=== PATIENT | female | born 1990 | race Caucasian/White ===

== ENCOUNTER → 2016-06-13 | Outpatient (CLI) | payer BC ==
--- NOTE | 2016-06-13 10:22 | US ---
EXAM DESCRIPTION: Gallbladder ultrasound. CLINICAL HISTORY: Epigastric pain COMPARISON: None. TECHNIQUE: Transabdominal sonography was performed by an lead nuclear medicine technologist. FINDINGS: Liver: Echogenicity is unremarkable. No suspicious lesion or surface nodularity. Biliary: No gallstones, gallbladder wall thickening, or sonographic Loomis's sign. There is no biliary duct dilation. Mid common bile duct measures 3 mm in diameter. Pancreas: No focal lesion. However, certain portions are obscured by overlying bowel gas and unable to be evaluated. IMPRESSION Unremarkable gallbladder ultrasound. Electronically signed by: Perez Lara MD 06/13/2016 10:20
== END ==
LOC: US 08:28
PROVIDERS: ATTEND Family Medicine
DX: R10.13 Epigastric pain (principal)

== ENCOUNTER → 2016-06-16 | Outpatient (CLI) | payer BC ==
--- NOTE | 2016-06-17 08:01 | MRI ---
EXAM DESCRIPTION: MR LUMBAR SPINE WITHOUT IV CONTRAST CLINICAL HISTORY: 25 y/o F, RADICULOPATHY COMPARISON: None TECHNIQUE: Multi planar, multi sequence imaging of the lumbar spine was acquired without IV contrast. FINDINGS: Vertebral body height, alignment and marrow signal are unremarkable. Disc desiccation with posterior central annular tear at L5-S1. The conus terminates at L1-L2 and is unremarkable. L1-L2: Unremarkable. L2-L3: Unremarkable. L3-L4: Unremarkable. L4-L5: Unremarkable. L5-S1: Focal posterior central disc protrusion. There is narrowing of the left lateral recess and contact of the descending left S1 nerve root. The midline diameter of the spinal canal is also mildly narrowed to 9 mm. Bilateral neural foramen are likely adequate. IMPRESSION: Today's exam demonstrates a focal posterior disc protrusion and annular tear. There is contact of the descending left S1 nerve root due to left lateral recess narrowing at L5-S1. This could result in a left S1 radiculopathy if the patient is symptomatic. Mild spinal canal narrowing only at L5-S1. Mild bilateral neural foraminal narrowing at L5-S1, no exiting nerve root contact. Electronically signed by: Perez Lara MD 06/17/2016 07:59
== END | disposition home or self-care (01) ==
LOC: MRI 10:19
PROVIDERS: ATTEND Family Medicine
DX: M54.16 Radiculopathy, lumbar region (principal)

== ENCOUNTER 2017-01-16 09:52 | Emergency (ER) | payer BC ==
[2017-01-16] MEDS ORDERED: CYCLOBENZAPRINE HCL 5 MG TAB PO ONE (10:14)
[2017-01-16] MEDS ORDERED: methylPREDNISolone SODIUM SUC 125 MG/2 ML VIAL IM ONE (10:14)
[2017-01-16] MEDS ORDERED: HYDROcodone 5MG/APAP 325MG 1 EA TAB PO ONE (10:14)
--- NOTE | 2017-01-16 10:14 | ED.PDOC ---
History of Present Illness - General Chief Complaint: Back Pain or Injury Stated Complaint: Worsening low back pain from herniated disc Time Seen by Provider: 01/16/17 09:53 Source: patient, RN notes reviewed, Vital Signs reviewed, old records, other - Reviewed state controlled substance database - no narcotics filled except cough syrup back in May Exam Limitations: no limitations - History of Present Illness Initial Comments: Patient comes in with c/o severe low back pain. She has a known history of a herniated disc @ L5-S1. Pain has been getting worse over the past month and then became quite severe yesterday. She takes Zanaflex and tried some only Tylenol #3 without improvement. Pain with movement. Pain radiates down her legs. Can't stand - unsure if just due to the pain or if there is some weakness too. She had an MRI Jun 2016 and initially did physical therapy which helped but got too expensive so started doing the exercises at home. Was to start injections but they were too expensive. ~ 2 weeks ago went to the chiropractor which helped. Timing/Duration: getting worse Quality/Severity: severe, radiation, sharpness Back Pain Location: lumbar spine Back Pain Radiation: lower legs Method of Injury/Prior Injury: other - Known herniated disc Improving Factors: nothing Worsening Factors: movement Associated Symptoms: muscle spasms, weakness, lower back pain Allergies/Adverse Reactions: Allergies Tizanidine [From Zanaflex] Allergy (Verified 01/16/17 10:18) Home Medications: Ambulatory Orders Acetamin W/Cod #3 Tab [Tylenol w/CODEINE #3] 1 - 2 ea PO Q4HR PRN #15 tab Cyclobenzaprine HCl [Flexeril] 10 mg PO Q8HR PRN #15 tab 01/16/17 Fluoxetine HCl [PROzac] 20 mg PO DAILY 01/16/17 Levonorgestrel-Ethinyl Estradi [Seasonique] 1 tab PO DAILY 01/16/17 Methylprednisolone [Medrol Dose Wesley] 4 mg PO DAILY #1 pack 01/16/17 Topiramate [Topamax] 100 mg PO TID 01/16/17 Review of Systems - Review of Systems Constitutional: States: no symptoms reported Respiratory: States: no symptoms reported Cardiology: States: no symptoms reported Gastrointestinal/Abdominal: States: no symptoms reported Musculoskeletal: States: see HPI, back pain Skin: States: no symptoms reported Neurological: States: see HPI, weakness, other - No bowel or bladder incontinence. Denies: numbness, paresthesia All other Systems: No Change from Baseline Past Medical History (General) - Patient Medical History Hx Diabetes: No Hx Renal Disease: No - Social History Hx Tobacco Use: No Hx Alcohol Use: Yes Hx Substance Use: No Hx Substance Use Treatment: No Hx Depression: Yes - Female History Hx Last Menstrual Period: 12/17/13 Patient : No Expected Date of Delivery:: 10/22/14 Family Medical History - Family History Father Maternal Living Status: Still Living Hx Family Hypertension: Yes Hx Family;Other: Pt states high cholestrol as well Mother Maternal Living Status: Still Living Hx Family Hypertension: Yes Hx Family;Other: Pt states high cholestrol as well, maternal aunt had GDM Maternal Grandparents Living Status: Still Living Hx Family Diabetes: Yes - Pt states her grandmother has type 2 diabetes Brother Maternal Living Status: Still Living Hx Family;Other: Pt states her brother has epilepsy Father Paternal Living Status: Hx Family Diabetes: Yes - Pt spouses father had type 2 diabetes Hx Family;Other: Pt spouses father also had 3 heart attacks Physical Exam - Physical Exam General Appearance: Alert, Obvious distress, Well Developed, Well Groomed, Well Hydrated, Well Nourished Cardiovascular/Respiratory: normal peripheral pulses, no respiratory distress Peripheral Pulses: posterior tibialis,right: 2+, posterior tibialis,left: 2+ Back Exam: muscle spasm - lumbosacral, vertebral tenderness - lower lumbar spine Extremity Exam: no evidence of injury, normal range of motion, non-tender Neurologic: alert, normal mood/affect, oriented x 3, abnormal gait - can't walk w/o significant assistance, motor weakness - bilateral LE 3+/5 with normal and equal senation to light touch, other - DTR @ knees 2+ and brisk Skin Exam: normal color, warm/dry Progress - Progress Progress: 01/16/17 11:19 Patient given Tyl #3, Flexeril PO and Solu-Medrol 125mg IM Reports she is feeling better. Will d/c home with Rx for above Departure - Departure Clinical Impression: Herniation of lumbar intervertebral disc with radiculopathy Time of Disposition: 11:21 Disposition: Discharge to Home or Self Care Condition: Good Instructions: DI for Back Pain With Sciatica Diet: resume usual diet Activity: increase activity as tolerated Referrals: Sung Franklin MD [Primary Care Provider] - 1-5 Days Prescriptions: Acetamin W/Cod #3 Tab [Tylenol w/CODEINE #3] 1 - 2 ea PO Q4HR PRN #15 tab PRN Reason: Moderate To Severe Pain Cyclobenzaprine HCl [Flexeril] 10 mg PO Q8HR PRN #15 tab PRN Reason: Muscle Spasms Methylprednisolone [Medrol Dose Wesley] 4 mg PO DAILY #1 pack Home Medications: Ambulatory Orders Acetamin W/Cod #3 Tab [Tylenol w/CODEINE #3] 1 - 2 ea PO Q4HR PRN #15 tab Cyclobenzaprine HCl [Flexeril] 10 mg PO Q8HR PRN #15 tab 01/16/17 Fluoxetine HCl [PROzac] 20 mg PO DAILY 01/16/17 Levonorgestrel-Ethinyl Estradi [Seasonique] 1 tab PO DAILY 01/16/17 Methylprednisolone [Medrol Dose Wesley] 4 mg PO DAILY #1 pack 01/16/17 Topiramate [Topamax] 100 mg PO TID 01/16/17
[2017-01-16 12:11] VITALS: BP 113/75; TEMP 97.1; O2SAT 98
== END 2017-01-16 11:45 | disposition home or self-care (01) ==
LOC: ER 09:52
DX: M51.16 Intervertebral disc disorders with radiculopathy, lumbar region (principal); Z88.8 Allergy status to other drugs, medicaments and biological substances; Z79.899 Other long term (current) drug therapy

== ENCOUNTER → 2017-08-02 | Outpatient (CLI) | payer BC ==
--- NOTE | 2017-08-02 16:25 | MRI ---
EXAM DESCRIPTION: Lumbar Spine w/o Contrast MRI. CLINICAL HISTORY: HERNIATED LUMBOSACRAL DISC COMPARISON: MRI lumbar spine 06/16/2016. TECHNIQUE: Multiplanar, multiple standard sequences, non contrast MRI, lumbar spine. FINDINGS: L5-S1: Again noted is a herniated desiccated disc in the midline, between 8 and 9 mm from the posterior bony margin, that is impressing on the thecal sac, and the left subarticular recess and descending left S1 nerve. AP canal diameter 7 mm. The distance of posterior herniation in the disc has increased since the prior study, as well as mass effect on the left S1 nerve root and thecal sac. The annular fissure is not as well seen on this study. Disc space has decreased since the prior study. Right foramen is nearly stenotic with mild stenosis of the left foramen. Facets and ligaments are unremarkable. Minimal peripheral desiccation of the L4-5 disc abutting the thecal sac and the descending bilateral L5 nerves above the subarticular recesses. Flavum ligaments abutting the posterior thecal sac. AP canal diameter 10 mm. Bilaterally shortened pedicles. Flavum ligaments and facets are unremarkable. Mild bilateral foraminal narrowing. L3-4: Annular desiccation with no significant bulging. Bilateral flavum ligament hypertrophy. Facets are unremarkable. AP canal diameter 11 mm with shortened pedicles. Bilateral foramina are patent. L2-3: Normal signal in the disc with disc space preserved. No bulging. Minimal hypertrophy of the flavum ligaments. AP canal diameter 13 mm. Bilateral foramina are patent. L1-2: Normal signal in the disc. Disc space preserved. No bulging. Canal and foramina are patent. Conus terminates just above the disc space. Posterior elements unremarkable. T12-L1: Normal signal in the disc and normal width of the disc space. Posterior elements are unremarkable. Canal and foramina are patent. Paravertebral soft tissues are negative. Normal marrow signal in the remaining vertebral bodies and the posterior elements. No scoliosis or other alignment abnormalities. Vertebral bodies are not compressed at any level. IMPRESSION: 1. L5-S1 disc herniation has increased in diameter and inferior migration since June 2016; increased mass effect on the thecal sac and left S1 nerve root. Canal and left subarticular recess stenosis. 2. Borderline central canal stenosis at L4-5 with shortened pedicles and flavum ligament hypertrophy. Moderate canal narrowing at L3-4 with the same factors. The discs at these levels are not significantly bulging. Electronically signed by: Alan Adair MD 08/02/2017 4:23 PM CDT
== END ==
LOC: MRI 07:03
PROVIDERS: ATTEND Family Medicine
DX: M51.27 Other intervertebral disc displacement, lumbosacral region (principal)

== ENCOUNTER → 2017-08-08 | Outpatient (CLI) | payer BC | LOC: LAB.O 08:14 | PROVIDERS: ATTEND Orthopaedic Surgery Orthopaedic Surgery of the Spine | DX: M51.26 Other intervertebral disc displacement, lumbar region (principal) ==

== ENCOUNTER 2019-07-18 15:27 | Observation (INO) | payer BC ==
[2019-07-18] MEDS ORDERED: SODIUM CHLORIDE 0.9% (FLUSH) 10 ML SYG IV PRN (16:19)
[2019-07-18] MEDS ORDERED: IV SET AND CAP CHANGE INJ INJ SCH (16:30)
[2019-07-18] MEDS: IBUPROFEN 400 MG TAB PO PRN (16:50)
[2019-07-18] MEDS: SODIUM CHLORIDE 0.9% 1000ML 1,000 ML IVS PRN (16:50)
[2019-07-18] MEDS: SULFA/TRIMETH 800/160 (DS) TAB 1 EA TAB PO SCH (16:51)
[2019-07-18] MEDS ORDERED: HYDROcodone 5MG/APAP 325MG 1 EA TAB PO ONE (17:07)
[2019-07-18] MEDS ORDERED: cefTRIAXone SODIUM 1 GM in SODIUM CHL 0.9% 50ML MIN-BAG+ 50 ML IVPB SCH (21:00)
[2019-07-18] MEDS ORDERED: SODIUM CHL 0.9% 50ML MIN-BAG+ 50 ML IVPB ONE (21:21)
[2019-07-18] MEDS ORDERED: cefTRIAXone SODIUM 1 GM VIAL ONE (21:22)
[2019-07-18] MEDS: ACETAMINOPHEN 325 MG TAB PO PRN (21:43)
[2019-07-18] MEDS: SODIUM CHLORIDE 0.9% (FLUSH) 10 ML SYG IV SCH (23:01)
[2019-07-19] MEDS: SODIUM CHLORIDE 0.9% 1000ML 1,000 ML IVS PRN ×2 (00:32→09:05)
[2019-07-19] MEDS: IBUPROFEN 400 MG TAB PO PRN (00:37)
[2019-07-19] MEDS: SULFA/TRIMETH 800/160 (DS) TAB 1 EA TAB PO SCH (04:55)
[2019-07-19] MEDS: SODIUM CHLORIDE 0.9% (FLUSH) 10 ML SYG IV SCH (09:05)
[2019-07-19] MEDS: ACETAMINOPHEN 325 MG TAB PO PRN (09:16)
--- NOTE | 2019-07-19 12:02 | US ---
EXAM DESCRIPTION: Breast,Right: Ultrasound CLINICAL HISTORY: 29 yearsFemalemastitis 2 weeks. Currently nursing baby. Pain and tenderness right breast. Erythema in the scanned. Lifetime risk of developing breast cancer (Tyrer-Cuzick model)(%): Not calculated COMPARISON: None. TECHNIQUE: Transcutaneous scanning of the lateral right breast utilizing neumann-scale and Doppler modes. Scanning performed by the fashion photographer only. FINDINGS: Ultrasound: Scanning thickening on the lateral right breast in particular, the 8:00 region where erythema is noted. No significant tenderness during the scan. Minimal edema between the subcutaneous layer and the fibroglandular tissues which predominate. Dilated retroareolar ducts. Erythema in the fatty layer and the fibroglandular tissues. No collection of hypoechoic material or fluid. No dominant solid mass. No large calcifications. IMPRESSION: Benign exam. Mastitis lateral and lower outer quadrant right breast. No abscess formation. BIRAD CATEGORY: 2 BENIGN FINDINGS. RECOMMENDATIONS: FOLLOW UP: The region of interest should be followed on clinical grounds, and if noted to change in size or character, a targeted/directed follow-up on US examination may be performed. Written communication explaining the IMPRESSION and follow-up, will be mailed to the patient and referring health care provider. The FINDINGS and the FOLLOW-UP plan were reviewed via telephone call with the hospitalist after the examination. According to the [employer], yearly mammograms are recommended starting at age 40 and continuing as long as a woman is in good health. Any breast change noted on a breast self-exam should be reported promptly to the patient's healthcare provider. Breast MRI is recommended for women with an approximately 20-25% or greater lifetime risk of breast cancer, including women with a strong family history of breast or ovarian cancer and women who have been treated for Hodgkin's disease. Electronically signed by: Alan Adair MD 07/19/2019 12:01 PM STEREOTYPER HELPER
[2019-07-19 13:04] VITALS: BP 109/70; TEMP 98.2; O2SAT 98
--- NOTE | 2019-07-24 09:04 | SSS ---
SUPERVISING PHYSICIAN: Sung Franklin MD DISCHARGE DIAGNOSES: 1. Mastitis of the right breast 2 weeks . 2. Asthma. 3. Migraine headaches. HISTORY OF PRESENT ILLNESS: This is a 29 year-old female who presented to the clinic with pain in her right breast 2 weeks and she is nursing. The pain in the symptoms started 24 hours previously. She had chills, headache ,nausea, with streaking along the right breast. She has tried to relieve the pain with warm compresses, hot showers, but nothing has helped. In the clinic, her initial vital signs were temperature of 100.6, pulse 129, blood pressure 102/70 and her oxygen saturation was 96%. Lab studies were done at the clinic. Initially she was going to be sent home with some antibiotics but she was extremely tired and she thought very dehydrated so she was sent to the hospital as a direct admission. Her white count in the hospital was 18,200 and her electrolytes were basically within normal limits. She was given some fluids and started on p.o. Bactrim and ceftriaxone, warm compresses were given to the patient. She had antiemesis and she received one dose of hydrocodone and then she received ibuprofen and Tylenol for her pain after that. The next morning, the pain was much improved. She was able to nurse without much difficulty and at this point she wanted to go home so she could be with her 2-week-old . PAST MEDICAL HISTORY: 1. Asthma. 2. Migraine headaches. 3. Lumbar discectomy, CURRENT MEDICATIONS: Topiramate. ALLERGIES: Tizanidine. FAMILY HISTORY: Positive for hypertension and ovarian cysts. SOCIAL HISTORY: She is . She lives in [place]. She has 3 children. She denies any tobacco or illicit drug use. She does drink on a social basis except when she is or nursing. REVIEW OF SYSTEMS: GENERAL: Positive for chills, fatigue and fever. HEENT: Negative for sinus symptoms, ear pain, vision changes, sore throat. RESPIRATORY: Negative for coughing, wheezing, shortness of breath CARDIAC: Negative for chest pain, palpitations, tachycardia. GI: Negative for nausea, vomiting or diarrhea. INTEGUMENT: As per history of present illness.. GENITOURINARY: Negative for hematuria, dysuria, polyuria. NEUROLOGICAL: Positive for headaches. Negative for seizures. PHYSICAL EXAMINATION: VITAL SIGNS: Temperature 98.2, heart rate 80, blood pressure 109/70, respiratory rate 18. Oxygen saturation 98% on room air. GENERAL: This is a 29 year-old female patient who is lying in her hospital bed. She is in no acute distress. HEENT: Normocephalic and atraumatic. Pupils are equal and reactive. Oropharynx is clear. NECK: Supple without mass. CHEST: Essentially clear to auscultation bilaterally. There is equal rise and fall of the chest with inspiration and expiration. CARDIOVASCULAR: Regular rate and rhythm. Occasionally, she is tachycardiac. ABDOMEN: Soft, nondistended, non-tender. Bowel sounds are positive. EXTREMITIES: No cyanosis, clubbing, or edema. SKIN: There is erythema and redness to the right breast consistent with mastitis and is tender to palpation. There is no fluctuance or drainage noted except milk production from the nipple. LABORATORY: WBC was 15.3 with hemoglobin of 11.3 and hematocrit 32.8. She did have a left shift on her differential. Her chemistries are basically within normal limits. Culture of her breast milk is pending. Blood cultures were done at the clinic. Breast ultrasound shows thickening of the lateral right breast at particularly the 8 o'clock region where erythema is noted. No significant tenderness during the scan, minimal edema between the subcutaneous layer and the fibroglandular tissue which predominates. Dilated retroareolar ducts, erythema in the fatty layer and the fibroglandular tissue. No collection of hypoechogenic material or fluid. No dominant solid mass, no large calcifications. Benign exam, mastitis of the lateral and lower outer quadrant right breast. No abscess formation. DISCHARGE PLAN: The patient will be discharged home in stable condition. She is to resume her previous diet and increase her activity as tolerated. She is to followup with her primary care physician, Dr. Franklin, on 07/24/19 at 2:30 PM. In addition to her routine medications, she has a prescription for Bactrim as well as Keflex. She is to return to the hospital or followup with Dr. Franklin for any problems or complications. DISCHARGE MEDICATIONS: 1. Topiramate. 2. Cephalexin. 3. Bactrim. #[id number] MTDD
== END 2019-07-19 15:33 | disposition home or self-care (01) ==
LOC: MS 15:27 → INTOOBSV 15:27
PROVIDERS: ADMIT Nurse Practitioner Acute Care; ATTEND Nurse Practitioner Acute Care
DX: O91.22 Nonpurulent mastitis associated with the puerperium (principal); G43.909 Migraine, unspecified, not intractable, without status migrainosus; Z79.899 Other long term (current) drug therapy; Z88.8 Allergy status to other drugs, medicaments and biological substances
CPT/HCPCS: 96361 ×2; 96374; J0696; J7030 ×3; J7050; 80048 ×3; 36415 ×3; 85025 ×2; 87070; 87205; 83735; 76641; 94760

== ENCOUNTER → 2019-07-24 | Outpatient (CLI) | payer BC | DX: N61.0 Mastitis without abscess (principal) ==

== ENCOUNTER → 2019-11-12 | Outpatient (CLI) | payer BC ==
--- NOTE | 2019-11-12 14:23 | MRI ---
EXAM DESCRIPTION: Lumbar Spine w/o Contrast : Magnetic Resonance Imaging. CLINICAL HISTORY: RADICULOPATHY LUMBAR REGION COMPARISON: MR scan lumbar spine July 2017. TECHNIQUE: Multiplanar, multiple standard sequences, non contrast MRI, lumbar spine. FINDINGS: L5-S1: The disc is well visualized on axial T2 series 501, image 3. Left partial laminectomy since the prior study. Hypertrophic, degenerative changes in the facet joint on the left. Disc desiccation and posterior midline bulge 4 mm. Minimal disc space loss. AP canal diameter 11 mm. Bilateral narrowing of the subarticular recesses, more left. Posterior midline granulation tissue. Granulation tissue versus recurrent disc herniation abutting the descending left S1 nerve in the left recess. Borderline left foraminal stenosis and moderate to severe right foraminal narrowing. No change from the prior study. L4-L5: Minimal desiccation of the annulus with no bulging. Disc space maintained. Minimal degenerative hypertrophy of the facet joints and posterior flavum ligaments (canal elements). AP canal diameter 11 mm. Mild narrowing of the bilateral foramina. Stable since the prior study. L3-L4: Minimal annular degeneration with disc space maintained. Mild degenerative hypertrophy of the canal elements. AP canal diameter 11 mm. Moderate left foraminal narrowing with right foramen patent. No change from the prior study. L2-L3: Normal signal in the disc with disc space maintained. Minimal degenerative hypertrophy of the canal elements. AP canal diameter 13 mm. Right foramen patent with minimal narrowing of the left foramen. No interval change. L1-L2: Normal signal in the disc with disc space maintained. No posterior bulging. Degenerative hypertrophy of the canal elements. Canal and foramina are patent. Conus terminates just above the disc space. Same findings at T12-L1 disc, disc space, canal elements; canal and foramina are patent. Stable since the prior study. L3-S1 levoscoliosis. Paravertebral soft tissues postsurgical changes abutting the left L5 lamina. Distal cord normal signal and caliber. Otherwise normal marrow signal in the remaining vertebral bodies and the posterior elements. Vertebral bodies are not compressed at any level. IMPRESSION: 1. Left partial laminectomy at L5 and left posterior partial L5-S1 discectomy since the prior study. Posterior midline disc remnant/granulation bulge with granulation tissue versus recurrent disc herniation encroaching on the left subarticular recess and the descending left S1 nerve. Moderate canal narrowing. Borderline left foraminal stenosis. 2. Moderate canal narrowing at L4-L5 and mild narrowing of the bilateral foramina. Also moderate canal narrowing at L3-L4. Electronically signed by: Alan Adair MD 11/12/2019 2:22 PM CDT
== END ==
LOC: MRI 10:44
PROVIDERS: ATTEND Family Medicine
DX: M54.16 Radiculopathy, lumbar region (principal); M48.061 Spinal stenosis, lumbar region without neurogenic claudication; M51.87 Other intervertebral disc disorders, lumbosacral region; Z98.890 Other specified postprocedural states

== ENCOUNTER 2020-01-19 19:02 | Emergency (ER) | payer BC ==
[2020-01-19] MEDS ORDERED: HYDROmorphone HCL INJ 2 MG/ML VIAL IV ONE ×2 (19:42→21:42)
[2020-01-19] MEDS ORDERED: ONDANSETRON INJ 4 MG/2 ML VIAL IV ONE (19:43)
[2020-01-19] MEDS ORDERED: diazePAM INJ 10 MG/2 ML SYG IV ONE ×2 (19:44→21:42)
[2020-01-19 21:00] VITALS: BP 126/90; TEMP 97; O2SAT 97
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
[2020-01-19] MEDS ORDERED: DEXAMETHASONE INJ 10 MG/ML VIAL IV ONE (21:44)
== END 2020-01-19 21:56 | disposition home or self-care (01) ==
LOC: ER 19:02
DX: M54.16 Radiculopathy, lumbar region (principal); M54.42 Lumbago with sciatica, left side; Z79.899 Other long term (current) drug therapy; Z88.8 Allergy status to other drugs, medicaments and biological substances; Z98.890 Other specified postprocedural states
CPT/HCPCS: J1100; J1170; J2405; J3360

== ENCOUNTER → 2020-04-17 | Outpatient (CLI) | payer BC ==
--- NOTE | 2020-04-20 09:15 | MRI ---
EXAM DESCRIPTION: Lumbar Spine w/Contrast : Magnetic Resonance Imaging. CLINICAL HISTORY: LUMBAR DISC HERNIATION COMPARISON: MRI scan lumbar spine October 2019. TECHNIQUE: Multiplanar, multiple standard sequences, with 1 mL per 5 kg body weight, Dotarem gadolinium IV contrast MRI, lumbar spine. FINDINGS: L5-S1: The disc is well visualized on axial T2 series 501, image 3. Again noted is partial left laminectomy. Grade 1 retrolisthesis 2 mm. Disc space decreased. Disc protrusion 7 mm posterior and 19 mm transverse, increasing posterior component since the prior study. Minimal enhancement of the disc/granulation material in the midline and to the left of midline abutting the descending left S1 nerve. Minimal enhancement posterior to the left facet joint. The bilateral S1 nerves also normally enhancing. Posterior flavum ligament on the right and facet joints (Canal elements) with no significant hypertrophy. Bilaterally shortened pedicles. AP canal diameter 10 mm. Bilateral neural foraminal stenosis. Stable since the prior study. L4-L5: Minimal signal in the disc with disc space preserved. No bulging. Canal elements are unremarkable. Bilaterally shortened pedicles. AP canal diameter 11 mm. Moderate narrowing of the right foramen and mild narrowing of the left foramen. Stable since the prior study. Normal contrast enhancement. L3-L4: Normal signal and the disc with disc space maintained. Minimal hypertrophy of the canal limits. Bilaterally short pedicles. AP canal diameter 12 mm. Stable since the prior study. Normal contrast enhancement. L2-L3: Decreased disc space and disc desiccation mostly anterior. No bulging. There are mild hypertrophic changes in the canal elements. Bilaterally shortened pedicles. AP canal diameter 12 mm. Bilateral foramina patent. Stable since the prior study. Normal contrast enhancement. L1-L2: Disc desiccation and minimal disc space loss. No disc bulging. Canal elements are unremarkable. Canal and foramina are patent. Stable since the prior study. Normal contrast enhancement. T12-L1: Normal signal in the disc and disc space maintained with no bulging. Canal elements are unremarkable. Canal and foramina are patent. Conus terminates at L1. Stable since the prior study. Normal contrast enhancement. Old Schmorl's node superior T12 endplate. No enhancement. Anatomic curvature of the spine. Paravertebral soft tissues postsurgical changes posteriorly at L5-S1. No abnormal contrast enhancement.. Distal cord normal signal and caliber. No abnormal contrast enhancement. Normal marrow signal in the remaining vertebral bodies and the posterior elements. Normal contrast enhancement. Vertebral bodies are not compressed at any level. IMPRESSION: 1. L5-S1 disc protrusion has increased in the midline and right of midline. Granulation tissue in the midline and left of midline indicating granulation tissue abutting the descending left S1 nerve. Shortened pedicles and borderline mild central canal stenosis stable since the prior study. Bilateral foraminal stenosis is stable since the prior study. 2. Bilaterally short pedicles and moderate canal narrowing L4-5-2 L2-3. No abnormal disc bulge or herniation. Moderate narrowing of the right foramen at L4-5 but otherwise no significant foraminal narrowing. Normal contrast enhancement. 3. Please refer to FINDINGS for discussion of results or specific disc space levels. Electronically signed by: Alan Adair MD 04/20/2020 9:13 AM [facility]
== END ==
LOC: MRI 09:08
PROVIDERS: ATTEND Specialist
DX: Z01.812 Encounter for preprocedural laboratory examination (principal); M51.26 Other intervertebral disc displacement, lumbar region; M51.27 Other intervertebral disc displacement, lumbosacral region; Q76.49 Other congenital malformations of spine, not associated with scoliosis; M48.07 Spinal stenosis, lumbosacral region; Z98.890 Other specified postprocedural states

== ENCOUNTER 2020-04-19 01:31 | Emergency (ER) | payer BC ==
[2020-04-19 01:56] VITALS: TEMP 98.2
[2020-04-19] MEDS ORDERED: diazePAM INJ 10 MG/2 ML SYG IM ONE (02:18)
[2020-04-19] MEDS ORDERED: KETOROLAC TROMETHAMINE INJ 30 MG/ML VIAL IM ONE (02:18)
[2020-04-19] MEDS ORDERED: DEXAMETHASONE INJ 10 MG/ML VIAL IM ONE (02:22)
--- NOTE | 2020-04-19 02:49 | ED.PDOC ---
History of Present Illness - General Chief Complaint: Back Pain or Injury Stated Complaint: LOW BACK PAIN Time Seen by Provider: 04/19/20 02:11 Source: patient, RN notes reviewed, Vital Signs reviewed, old records - 01/20/20ED visit, [employer] Aware. Exam Limitations: no limitations - History of Present Illness Initial Comments: Patient is a 29-year-old white female who presents with complaints of low back pain. This started last night. Patient has a history of back pain. She is to see her surgeon in 2 weeks. Patient denies any bowel or bladder incontinence/retention. Pain is worse when she bends over or lays on her left side. Nothing seems to improve it anymore. Patient took her Flexeril earlier today without improvement. Timing/Duration: 7-24 hours Quality/Severity: severe, sharpness Back Pain Location: lumbar spine Back Pain Radiation: buttocks, upper legs - left Method of Injury/Prior Injury: unknown Improving Factors: nothing Worsening Factors: movement Associated Symptoms: muscle spasms, lower back pain Allergies/Adverse Reactions: Allergies Gabapentin Allergy (Verified 04/19/20 01:57) Tizanidine [From Zanaflex] Allergy (Verified 01/16/17 10:18) Home Medications: Ambulatory Orders Topiramate [Topamax] 100 mg PO BID 01/16/17 Cyclobenzaprine Tab (ER Disp) [Flexeril Tab (ER Dispense)] 10 mg PO Q8HR PRN 04/19/20 Topiramate 100 mg PO BID 04/19/20 Venlafaxine HCl [Effexor] 37.5 mg PO DAILY 04/19/20 Review of Systems - Review of Systems Constitutional: States: no symptoms reported, see HPI. Denies: chills, fever, malaise, weakness EENTM: States: no symptoms reported. Denies: eye pain, blurred vision, double vision Respiratory: States: no symptoms reported. Denies: cough, short of breath, wheezing Cardiology: States: no symptoms reported. Denies: chest pain, palpitations, syncope Gastrointestinal/Abdominal: States: no symptoms reported. Denies: abdominal pain, diarrhea, nausea, vomiting Genitourinary: States: no symptoms reported. Denies: dysuria, frequency Musculoskeletal: States: see HPI, back pain Skin: States: no symptoms reported. Denies: change in color, rash Neurological: States: see HPI. Denies: numbness, paresthesia, tingling, tremors, weakness Endocrine: States: no symptoms reported. Denies: increased hunger, increased thirst, increased urine Hematologic/Lymphatic: States: no symptoms reported. Denies: blood clots, easy bleeding All other Systems: Reviewed and Negative, No Change from Baseline Past Medical History (General) - Patient Medical History Hx Seizures: No Hx Stroke: No Hx Dementia: No Hx Asthma: No Hx of COPD: No Hx Cardiac Disorders: No Hx Congestive Heart Failure: No Hx Pacemaker: No Hx Hypertension: No Hx Thyroid Disease: No Hx Diabetes: No Hx Gastroesophageal Reflux: No Hx Renal Disease: No Hx Cancer: No Hx of HIV: No Hx Hepatitis C: No Hx MRSA: No Hx Other PMH: Yes - hx of back pain Surgical History: other - Vaccination History Hx Tetanus, Diphtheria Vaccination: Yes Hx Influenza Vaccination: Yes Hx Pneumococcal Vaccination: No Immunizations Up to Date: Yes - Social History Hx Tobacco Use: No Hx Chewing Tobacco Use: No Hx Alcohol Use: No Hx Substance Use: No Hx Substance Use Treatment: No Hx Depression: Yes Hx Physical Abuse: No Hx Emotional Abuse: No Hx Suspected Abuse: No - Female History Patient is a Female of Child Bearing Age (10 -59 yrs old): Yes Hx Last Menstrual Period: 12/17/13 Patient : No - TUBAL LIGATION Expected Date of Delivery:: 10/22/14 - Triage Comment ED Triage Comment: LUMBAR SURGURY 3 YEARS AGO WITHOUT RELIEF. FLEXERIL IS NOT HELPING. Family Medical History - Family History Father Maternal Living Status: Still Living Hx Family Hypertension: Yes Hx Family;Other: Pt states high cholestrol as well Mother Maternal Living Status: Still Living Hx Family Hypertension: Yes Hx Family;Other: Pt states high cholestrol as well, maternal aunt had GDM Maternal Grandparents Living Status: Still Living Hx Family Diabetes: Yes - Pt states her grandmother has type 2 diabetes Brother Maternal Living Status: Still Living Hx Family;Other: Pt states her brother has epilepsy Father Paternal Living Status: Hx Family Diabetes: Yes - Pt spouses father had type 2 diabetes Hx Family;Other: Pt spouses father also had 3 heart attacks Physical Exam - Physical Exam General Appearance: Alert, Anxious, Obvious distress, Well Developed, Well Groomed, Well Hydrated, Well Nourished Eyes, Ears, Nose, Throat Exam: PERRL/EOMI, normal ENT inspection Neck Exam: non-tender, full range of motion, normal alignment, normal inspection Cardiovascular/Respiratory: regular rate, rhythm, no M/R/G, normal peripheral pulses, no JVD, normal breath sounds, no respiratory distress Gastrointestinal/Abdominal: normal bowel sounds, non tender, soft Back Exam: no CVA tenderness, no vertebral tenderness, decreased range of motion, muscle spasm - left lumbar , other - welled healed lumbar incision. 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 04/19/20 02:53 Tenderness improved after IM meds. Plan on discharge home. Patient to follow- up with PCP or surgeon on Monday. I discussed the plan of care with the patient and her father. They agree with the plan of care. Father to drive her home since she has had Valium. Blayne Sánchez M.D. #[id number] Departure - Departure Clinical Impression: Lumbar back pain Time of Disposition: 02:55 Disposition: Discharge to Home or Self Care Condition: Good Departure Forms: ED Discharge - Pt. Copy, Patient Portal Self Enrollment Instructions: DI for Low Back Pain, Low Back Pain (DC), Back Precautions Diet: resume usual diet Activity: increase activity as tolerated Referrals: Sung Franklin MD [Primary Care Provider] - 1-5 Days Home Medications: Ambulatory Orders Topiramate [Topamax] 100 mg PO BID 01/16/17 Cyclobenzaprine Tab (ER Disp) [Flexeril Tab (ER Dispense)] 10 mg PO Q8HR PRN 04/19/20 Topiramate 100 mg PO BID 04/19/20 Venlafaxine HCl [Effexor] 37.5 mg PO DAILY 04/19/20
[2020-04-19 03:00] VITALS: BP 101/64; O2SAT 98
== END 2020-04-19 03:04 | disposition home or self-care (01) ==
LOC: ER 01:31
DX: M54.5 Low back pain (principal); F32.9 Major depressive disorder, single episode, unspecified; Z98.890 Other specified postprocedural states; Z79.899 Other long term (current) drug therapy; Z88.8 Allergy status to other drugs, medicaments and biological substances
CPT/HCPCS: J1100; J1885; J3360